=== PATIENT | female | born 1965 | race African-American/Black ===

== ENCOUNTER 2022-01-26 05:08 | Day surgery (SDC) | payer OTHER ==
[2022-01-24 17:41] VITALS: BMI 34.4
[2022-01-26] MEDS ORDERED: ceFAZolin SODIUM 1 GM VIAL IVPB ONE ×2 (13:52→14:52)
[2022-01-26] MEDS ORDERED: MIDAZOLAM HCL 2 MG/2 ML SINGLE DOSE VIAL ONE (14:19)
[2022-01-26] MEDS ORDERED: DEXAMETHASONE SOD PHOSPHATE 4 MG/1 ML VIAL ONE (14:19)
[2022-01-26] MEDS ORDERED: ONDANSETRON 4 MG/2 ML VIAL ONE (14:19)
[2022-01-26] MEDS ORDERED: PROPOFOL 20 ML ONE ×2 (14:19→15:02)
[2022-01-26] MEDS ORDERED: LIDOCAINE HCL/PF (2%) 40 MG/2 ML VIAL ONE (14:19)
[2022-01-26] MEDS ORDERED: ceFAZolin SODIUM 1 GM VIAL ONE (14:55)
[2022-01-26] MEDS ORDERED: ONDANSETRON 4 MG/2 ML VIAL IVPUSH PRN (15:07)
[2022-01-26] MEDS ORDERED: PROMETHAZINE HCL 25 MG/1 ML VIAL IVPUSH PRN (15:07)
[2022-01-26] MEDS ORDERED: oxyCODONE HCL 5 MG TABLET PO PRN (15:07)
[2022-01-26] MEDS ORDERED: LACTATED RINGERS SOLUTION 1,000 ML IV SCH (15:15)
[2022-01-26 17:38] VITALS: BP 148/71; PULSE 66; RESP 18; TEMP 97.4
== END 2022-01-26 18:08 | disposition home or self-care (01) ==
LOC: JASU-SURG 05:08
PROVIDERS: ATTEND Obstetrics & Gynecology
PROC: 0UJD8ZZ Inspection of Uterus and Cervix, Via Natural or Artificial Opening Endoscopic (ICD-10-PCS; 2022-01-26)
PROC: 0UDB7ZX Extraction of Endometrium, Via Natural or Artificial Opening, Diagnostic (ICD-10-PCS; principal; 2022-01-26 14:00)
DX: N95.0 Postmenopausal bleeding (principal)
CPT/HCPCS: 82962; 88305-TC; 94760